=== PATIENT | female | born 1960 | race Caucasian/White ===

== ENCOUNTER → 2020-12-13 | Outpatient (CLI) | payer OTHER ==
[2020-12-13 16:08] LABS: BASOPHILS ABSOLUTE AUTO 0.05 K/mm3 (0.00-0.23); BASOPHILS PERCENT AUTO 1 % (0-2); EOSINOPHILS ABSOLUTE AUTO 0.25 K/mm3 (0.00-0.68); EOSINOPHILS PERCENT AUTO 4 % (0-6); Hemoglobin 10.9 g/dL (11.5-16.0); IMMATURE GRAN ABSOLUTE AUTO 0.02 K/mm3 (0.00-0.10); IMMATURE GRAN PERCENT AUTO 0 % (0-1); LYMPHOCYTES ABSOLUTE AUTO 0.99 K/mm3 (0.84-5.20); LYMPHOCYTES PERCENT AUTO 17 % (21-46); MONOCYTES ABSOLUTE AUTO 0.47 K/mm3 (0.16-1.47); MONOCYTES PERCENT AUTO 8 % (4-13); Mean Corpuscular HGB 29.9 pg (26.0-34.0); Mean Corpuscular Volume 90 fL (80-100); Mean Platelet Volume 11.3 fL (9.1-12.4); NEUTROPHILS ABSOLUTE AUTO 4.09 K/mm3 (1.96-9.15); NEUTROPHILS PERCENT AUTO 70 % (41-73); Platelet Count 249 K/mm3 (150-400); RDW Coefficient Variation 12.2 % (11.7-14.2); RDW Standard Deviation 40.5 fL (35.1-46.3); Red Blood Cell Count 3.65 M/mm3 (3.80-5.20); White Blood Cell Count 5.87 K/mm3 (4.00-11.30)
[2020-12-13 17:00] LABS: Alanine Aminotransfer (ALT/SGP 16 U/L (12-78); Albumin, Blood 3.8 g/dL (3.4-5.0); Albumin/Globulin Ratio 0.9 (0.8-1.8); Alk Phos 97 U/L (50-136); Anion Gap 5 mmol/L (6-16); Aspartate Aminotrans (AST/SGOT 12 U/L (12-37); Bilirubin, Total 0.2 mg/dL (0.1-1.0); Blood Urea Nitrogen 24 mg/dL (8-24); Bun/Creatinine Ratio 35.3 (12.0-20.0); CO2, Blood 27 mmol/L (21-32); Calcium, Blood 9.5 mg/dL (8.5-10.1); Chloride, Blood 109 mmol/L (98-108); Creatinine, Blood 0.68 mg/dL (0.40-1.00); Globulin, Blood 4.3 g/dL (2.2-4.0); Glomerular Filtration Rate >60 (60-); Glucose, Blood 92 mg/dL (70-99); Potassium, Blood 4.2 mmol/L (3.5-5.5); Sodium, Blood 141 mmol/L (136-145); Total Protein, Blood 8.1 g/dL (6.4-8.2)
[2020-12-13 17:36] LABS: CHOL/HDL RATIO 3.5; Cholesterol 204 mg/dL (50-200); Free Thyroxine 1.21 ng/dL (0.70-1.60); HDL Cholesterol 59 mg/dL (>39); LDL/HDL RATIO 2.1; Low Density Lipoprotein Chol 123 mg/dL (0-110); Triglycerides 108 mg/dL (30-160); Very Low Density Lipoprot Chol 21 mg/dL (6-32)
[2020-12-13 17:41] LABS: Thyroid Stimulating Hormone 0.418 uIU/mL (0.360-4.800)
== END | disposition home or self-care (01) ==
LOC: LAB SHORT 14:48
PROVIDERS: Nurse Practitioner Family
DX: E03.9 Hypothyroidism, unspecified (principal); E78.5 Hyperlipidemia, unspecified; I10 Essential (primary) hypertension
CPT/HCPCS: 80053; 80061; 84439; 84443; 85025

== ENCOUNTER 2021-02-04 14:59 | Observation (INO) | payer OTHER ==
[~2021-02-04] VITALS: Ht 165.1 cm; Wt 65.0 kg
[2021-02-04] MEDS ORDERED: MIRT15 PO (15:17)
[2021-02-04] MEDS ORDERED: CELE100 PO (15:31)
[2021-02-04] MEDS ORDERED: Aspir 8181 MG PO (15:31)
[2021-02-04] MEDS ORDERED: EZET10 PO (15:32)
[2021-02-04] MEDS ORDERED: DONEPEZIL HCL10 MG PO (15:32)
[2021-02-04] MEDS ORDERED: ZYRTEC10 M2 PO (15:32)
[2021-02-04] MEDS ORDERED: HORIZANT600 MG PO (15:33)
[2021-02-04] MEDS ORDERED: EUTHYROX125 MCG PO (15:34)
[2021-02-04] MEDS ORDERED: LOSA25 PO (15:34)
[2021-02-04] MEDS ORDERED: MEMA10 PO (15:35)
[2021-02-04] MEDS ORDERED: Methocarbamol500 MG PO (15:35)
[2021-02-04] MEDS ORDERED: OLAN10 PO (15:36)
[2021-02-04] MEDS ORDERED: OMEGA-3 1,0501 EACH PO (15:37)
[2021-02-04] MEDS ORDERED: OMEP20ER PO (15:38)
[2021-02-04] MEDS ORDERED: OXYB5 PO (15:38)
[2021-02-04] MEDS ORDERED: PANT40 PO (15:39)
[2021-02-04] MEDS ORDERED: Primidone50 MG PO (15:39)
[2021-02-04] MEDS ORDERED: SERT100 PO (15:40)
[2021-02-04 16:36] LABS: BASOPHILS ABSOLUTE AUTO 0.03 K/mm3 (0.00-0.23); BASOPHILS PERCENT AUTO 0 % (0-2); EOSINOPHILS ABSOLUTE AUTO 0.01 K/mm3 (0.00-0.68); EOSINOPHILS PERCENT AUTO 0 % (0-6); Hematocrit 39.1 % (33.0-51.0); Hemoglobin 13.2 g/dL (11.5-16.0); IMMATURE GRAN ABSOLUTE AUTO 0.07 K/mm3 (0.00-0.10); IMMATURE GRAN PERCENT AUTO 0 % (0-1); LYMPHOCYTES ABSOLUTE AUTO 2.08 K/mm3 (0.84-5.20); LYMPHOCYTES PERCENT AUTO 12 % (21-46); MONOCYTES ABSOLUTE AUTO 1.29 K/mm3 (0.16-1.47); MONOCYTES PERCENT AUTO 8 % (4-13); Mean Corpuscular HGB Conc 33.8 g/dL (31.5-36.5); Mean Corpuscular Volume 86 fL (80-100); Mean Platelet Volume 11.5 fL (9.1-12.4); NEUTROPHILS ABSOLUTE AUTO 13.53 K/mm3 (1.96-9.15); NEUTROPHILS PERCENT AUTO 80 % (41-73); Platelet Count 366 K/mm3 (150-400); RDW Coefficient Variation 12.9 % (11.7-14.2); Red Blood Cell Count 4.55 M/mm3 (3.80-5.20); White Blood Cell Count 17.01 K/mm3 (4.00-11.30)
[2021-02-04 17:02] LABS: Alanine Aminotransfer (ALT/SGP 20 U/L (12-78); Albumin, Blood 4.1 g/dL (3.4-5.0); Albumin/Globulin Ratio 0.8 (0.8-1.8); Alk Phos 106 U/L (50-136); Anion Gap 9 mmol/L (6-16); Aspartate Aminotrans (AST/SGOT 24 U/L (12-37); Bilirubin, Direct <0.1 mg/dL (0.0-0.3); Bilirubin, Total 0.3 mg/dL (0.1-1.0); Blood Urea Nitrogen 41 mg/dL (8-24); Bun/Creatinine Ratio 32.5 (12.0-20.0); CO2, Blood 23 mmol/L (21-32); Calcium, Blood 9.7 mg/dL (8.5-10.1); Chloride, Blood 105 mmol/L (98-108); Creatinine, Blood 1.26 mg/dL (0.40-1.00); Globulin, Blood 5.4 g/dL (2.2-4.0); Glomerular Filtration Rate 43 (60-); Glucose, Blood 126 mg/dL (70-99); Magnesium, Blood 2.2 mg/dL (1.6-2.4); Potassium, Blood 3.4 mmol/L (3.5-5.5); Sodium, Blood 137 mmol/L (136-145); Total Protein, Blood 9.5 g/dL (6.4-8.2)
[2021-02-04 17:06] LABS: Source, Urine Clean Catch
[2021-02-04 17:18] LABS: Influenza A, PCR NEGATIVE (NEGATIVE); Influenza B, PCR NEGATIVE (NEGATIVE); Resp Syncytial Virus, PCR NEGATIVE (NEGATIVE); SARS-Cov-2 (COVID-19) PCR, MMC NEGATIVE (NEGATIVE)
[2021-02-04 17:18] LABS: Bilirubin, Indirect Unable to Calculate mg/dL (0.1-0.7); Troponin I 0.917 ng/mL (0.000-0.040)
[2021-02-04 17:37] LABS: Appearance, Urine Clear (Clear); Bilirubin, Urine Neg (Neg); Blood, Urine 5+ (Neg); Color, Urine Yellow (P-Yellow); Glucose Qualitative, Urine 4+ (Neg); Ketones, Urine Neg (Neg); Leukocyte Esterase, Urine Neg (Neg); Nitrite, Urine Neg (Neg); Protein, Urine 4+ (Neg); Specific Gravity, Urine 1.015 (1.003-1.022); Urobilinogen, Urine NORM (Normal)
[2021-02-04 17:41] LABS: White Blood Cells, Urine 0-2 /hpf (0-5)
[2021-02-04 17:42] LABS: Amorphous Mod (0-Heavy); Bacteria Few /hpf; Granular Casts 0-2 /lpf (0); Hyaline Casts 0-2 /lpf (0-2); Squamous Epithelial Cells Few /hpf (Few)
[2021-02-04 19:19] LABS: Anti-Xa UFH, PHA Monitoring <0.10 IU/mL; International Normalized Ratio 1.13; Prothrombin Time Results 11.8 Sec (9.7-11.5)
[2021-02-05 03:50] LABS: BASOPHILS ABSOLUTE AUTO 0.05 K/mm3 (0.00-0.23); BASOPHILS PERCENT AUTO 0 % (0-2); EOSINOPHILS ABSOLUTE AUTO 0.01 K/mm3 (0.00-0.68); EOSINOPHILS PERCENT AUTO 0 % (0-6); Hematocrit 33.2 % (33.0-51.0); Hemoglobin 11.3 g/dL (11.5-16.0); IMMATURE GRAN ABSOLUTE AUTO 0.06 K/mm3 (0.00-0.10); IMMATURE GRAN PERCENT AUTO 0 % (0-1); LYMPHOCYTES ABSOLUTE AUTO 2.65 K/mm3 (0.84-5.20); LYMPHOCYTES PERCENT AUTO 14 % (21-46); MONOCYTES ABSOLUTE AUTO 1.55 K/mm3 (0.16-1.47); MONOCYTES PERCENT AUTO 8 % (4-13); Mean Corpuscular HGB 29.4 pg (26.0-34.0); Mean Corpuscular Volume 87 fL (80-100); Mean Platelet Volume 11.7 fL (9.1-12.4); NEUTROPHILS ABSOLUTE AUTO 14.11 K/mm3 (1.96-9.15); NEUTROPHILS PERCENT AUTO 77 % (41-73); Platelet Count 294 K/mm3 (150-400); RDW Coefficient Variation 13.2 % (11.7-14.2); RDW Standard Deviation 41.1 fL (35.1-46.3); Red Blood Cell Count 3.84 M/mm3 (3.80-5.20); White Blood Cell Count 18.43 K/mm3 (4.00-11.30)
[2021-02-05 04:19] LABS: Alanine Aminotransfer (ALT/SGP 22 U/L (12-78); Albumin, Blood 3.4 g/dL (3.4-5.0); Albumin/Globulin Ratio 0.8 (0.8-1.8); Alk Phos 87 U/L (50-136); Anion Gap 7 mmol/L (6-16); Aspartate Aminotrans (AST/SGOT 27 U/L (12-37); Bilirubin, Total 0.3 mg/dL (0.1-1.0); Blood Urea Nitrogen 31 mg/dL (8-24); Bun/Creatinine Ratio 36.3 (12.0-20.0); CO2, Blood 24 mmol/L (21-32); Calcium, Blood 8.8 mg/dL (8.5-10.1); Chloride, Blood 109 mmol/L (98-108); Creatinine, Blood 0.86 mg/dL (0.40-1.00); Globulin, Blood 4.4 g/dL (2.2-4.0); Glomerular Filtration Rate >60 (60-); Glucose, Blood 114 mg/dL (70-99); Potassium, Blood 3.2 mmol/L (3.5-5.5); Sodium, Blood 140 mmol/L (136-145); Thyroid Stimulating Hormone 0.882 uIU/mL (0.360-4.800); Total Protein, Blood 7.8 g/dL (6.4-8.2); Troponin I 0.489 ng/mL (0.000-0.040)
--- NOTE | 2021-02-05 05:11 | NUR ---
SUMMARY: PT IS A/OX4. PT HAS BEEN NAUSEATED MOST OF NOC SHIFT. SCHEDULED ZOFRAN AND PRN COMP HAVE BEEN HELPFUL. THE PT HAS IV MORPHINE PRN FOR ABD PAIN SHE CURRENTLY HAS HEPARIN GTT AT 15U/KG/HR OR 19.5 ML. SHE ALSO HAS LR @ 150 ML/HR. PT USES CALL LIGHT WELL.
--- NOTE | 2021-02-05 05:14 | NUR ---
ADMISSION: PT ARRIVED TO FLOOR VIA GURNEY AND TRANSFERRED HERSELF TO BED. ON CONTACT FOR A GI PANEL SHE HAS NO C/O OF CP, SOB, COUGH, JUST CONTINUES TO BE NAUSEATED. SHE REFUSED SCDs. SHE IS COVID -. TROPONINS ARE TRENDING DOWN. THE PT HAS TWO IVs ONE W/ HEPARIN GTT AND THE OTHER W/ LR @ 150. MOST OF HER EMESIS EPISODES ARE UNPRODUCTIVE, EXECEPT FOR ONE AMOUNT OF 25ML OF BILIOUS LIQUID. SHE IS NOT PASSING HUMBERTO OR HAD A BM IN THE LAST FEW DAYS.
--- NOTE | 2021-02-05 18:28 | NUR ---
SHIFT SUMMARY; PATIENT HAD NO BOWEL MOVEMENT TODAY. PER PROTOCOL CDIFF PRECAUTIONS ARE STOPPED AT 1915 AT SHIFT CHANGE. PATIENT IS AO X 4 TODAY. SHE IS CONCERNED THAT SHE HAS NOT HAD HER PSYCH MEDICATIONS AND NOT SLEPT FOR 3 DAYS. THIS RN LETS HER KNOW THAT HAS PUT THEM IN FOR TONIGHT. VIELKA HAD EPISODE OF HTN B/P WAS 175 SYSTOLIC, HYDRALAZINE WAS ADMIN IV AND SYSTOLIC DOWN TO 130'S. HR IS 125 AT TIMES CLIMBS TO 150 FOR A FEW MINUTES THEM RETURNS. SHE HAS ONE EPISODE OF VOMITTING AT DINNER TONIGHT WHERE SHE IS HEARD WRETCHING AND APPROX 4MLS OF LIQUID NOTED IN EMESIS BAG. ZOFRAN ODT PO WAS ADMIN AND AT THIS TIME PATIENT EXPRESSES SHE IS FEELING BETTER. PATIENT ABLE TO AMBULATE TO BATHROOM WITHOUT ASSIST AND DOES NOT CALL TO LET STAFF KNOW WHEN SHE VOIDS. WILL REMAIN AVAILABLE FOR THIS PATIENT FOR ANY WANTS OR NEEDS TILL HAND OFF AT SHIFT CHANGE. YUNG YUAN RN
[2021-02-06 06:00] LABS: Anion Gap 13 mmol/L (6-16); Blood Urea Nitrogen 13 mg/dL (8-24); Bun/Creatinine Ratio 21.8 (12.0-20.0); CO2, Blood 23 mmol/L (21-32); Chloride, Blood 101 mmol/L (98-108); Glomerular Filtration Rate >60 (60-); Glucose, Blood 107 mg/dL (70-99); Potassium, Blood 3.3 mmol/L (3.5-5.5); Sodium, Blood 137 mmol/L (136-145)
--- NOTE | 2021-02-06 06:40 | NUR ---
SHIFT SUMMARY AOX4. VSS. TELE ST HR 111-118 WHILE @REST. WHEN PT UP TO RESTROOM HR GOES UP TO 150'S FOR A FEW MIN THEN SLOWLY TRENDS BACK DOWN. REPORTS MID UPPER ABD DISCOMFORT, STATES POSSIBLY FROM HERNIA, DENIES NEED FOR TYLENOL. HYPERACTIVE BT. REPORTS NAUSEA & BURNING SENSATION. HAD 2 EPISODES RETCHING c YELLOW/LIGHT GREEN LIQUID EMESIS. I NOTICED RETCHING OCCURS AFTER PT HAS SWALLOWED SOMETHING. MEDICATED 1X c COMPAZINE & THIS AM MEDICATED c GI COCKTAIL FOR BURNING PAINFUL SENSATION. PLAN IS TO HAVE ECHO THIS AM. DENIES ANY CP. CALL LIGHT IN REACH. WCTM.
[2021-02-06 12:43] LABS: BASOPHILS ABSOLUTE AUTO 0.08 K/mm3 (0.00-0.23); BASOPHILS PERCENT AUTO 1 % (0-2); EOSINOPHILS ABSOLUTE AUTO 0.04 K/mm3 (0.00-0.68); EOSINOPHILS PERCENT AUTO 0 % (0-6); Hematocrit 36.6 % (33.0-51.0); IMMATURE GRAN PERCENT AUTO 1 % (0-1); LYMPHOCYTES PERCENT AUTO 18 % (21-46); MONOCYTES ABSOLUTE AUTO 1.03 K/mm3 (0.16-1.47); MONOCYTES PERCENT AUTO 9 % (4-13); Mean Corpuscular HGB 28.6 pg (26.0-34.0); Mean Corpuscular HGB Conc 32.8 g/dL (31.5-36.5); Mean Corpuscular Volume 87 fL (80-100); Mean Platelet Volume 11.4 fL (9.1-12.4); NEUTROPHILS ABSOLUTE AUTO 8.39 K/mm3 (1.96-9.15); NEUTROPHILS PERCENT AUTO 71 % (41-73); Platelet Count 302 K/mm3 (150-400); RDW Coefficient Variation 13.3 % (11.7-14.2); RDW Standard Deviation 42.4 fL (35.1-46.3); White Blood Cell Count 11.74 K/mm3 (4.00-11.30)
[2021-02-06] MEDS ORDERED: ONDA4ODT MM (12:52)
[2021-02-06] MEDS ORDERED: MIRALAX17 GM PO (12:53)
--- NOTE | 2021-02-06 15:14 | NUR ---
DISCHARGE PATIENT TRANSPORTED VIA WHEELCHAIR TO PRIVATE VEHICLE. DISCHARGE INSTRUCTIONS EXPLAINED TO PATIENT. PATIENT STATED UNDERSTANDING. PACKET SENT WITH PATIENT. IV X2 REMOVED WITHOUT DIFFICULTY. TELE REMOVED WITHOUT DIFFICULTY. BELONGINGS SENT WITH PATIENT. MEDICATIONS FAXED TO PERFERRED PHARMACY. PATIENT TO SCHEDULE FOLLOW UP WITH PCP.
== END 2021-02-06 14:17 | disposition home or self-care (01) ==
LOC: ER 14:59 → MEDS 15:00
PROVIDERS: Family Medicine; Student in an Organized Health Care Education/Training Program; ADMIT Internal Medicine
DX: R10.13 Epigastric pain (principal); R77.8 Other specified abnormalities of plasma proteins; R11.2 Nausea with vomiting, unspecified; I16.0 Hypertensive urgency; I10 Essential (primary) hypertension; N17.9 Acute kidney failure, unspecified; E87.6 Hypokalemia; E86.0 Dehydration; K21.9 Gastro-esophageal reflux disease without esophagitis; F17.290 Nicotine dependence, other tobacco product, uncomplicated; F12.90 Cannabis use, unspecified, uncomplicated; R19.7 Diarrhea, unspecified; F03.90 Unspecified dementia, unspecified severity, without behavioral disturbance, psychotic disturbance, mood disturbance, and anxiety; E03.9 Hypothyroidism, unspecified; M19.90 Unspecified osteoarthritis, unspecified site; F31.9 Bipolar disorder, unspecified; E78.5 Hyperlipidemia, unspecified; I77.819 Aortic ectasia, unspecified site; Z88.8 Allergy status to other drugs, medicaments and biological substances; Z79.82 Long term (current) use of aspirin; Z20.822 Contact with and (suspected) exposure to COVID-19
CPT/HCPCS: 0241U; 36415; 71045; 80048; 80053; 80076; 81001; 83690; 83735; 84443; 84484; 85025; 85520; 85610; 93005; 93010; 93306; 96365; 96375; 99285-25; A9270; C9113; J0360; J0780; J1644; J2270; J2405; J2765; J3475; J3480; J7042; J7050; J7120

== ENCOUNTER 2021-02-21 21:31 | Emergency (ER) | payer OTHER ==
[~2021-02-21] VITALS: Ht 165.1 cm; Wt 61.2 kg
[~2021-02-21 21:31] MED LIST: Aspir 8181 MG PO; CELE100 PO; DONEPEZIL HCL10 MG PO; EUTHYROX125 MCG PO; EZET10 PO; HORIZANT600 MG PO; LOSA25 PO; MEMA10 PO; MIRALAX17 GM PO; MIRT15 PO; Methocarbamol500 MG PO; OLAN10 PO; OMEGA-3 1,0501 EACH PO; OMEP20ER PO; ONDA4ODT MM; OXYB5 PO; PANT40 PO; Primidone50 MG PO; SERT100 PO; ZYRTEC10 M2 PO
[2021-02-21 22:20] LABS: BASOPHILS ABSOLUTE AUTO 0.08 K/mm3 (0.00-0.23); BASOPHILS PERCENT AUTO 1 % (0-2); EOSINOPHILS ABSOLUTE AUTO 0.11 K/mm3 (0.00-0.68); EOSINOPHILS PERCENT AUTO 1 % (0-6); Hematocrit 32.4 % (33.0-51.0); Hemoglobin 10.9 g/dL (11.5-16.0); IMMATURE GRAN ABSOLUTE AUTO 0.14 K/mm3 (0.00-0.10); IMMATURE GRAN PERCENT AUTO 1 % (0-1); LYMPHOCYTES ABSOLUTE AUTO 1.44 K/mm3 (0.84-5.20); LYMPHOCYTES PERCENT AUTO 11 % (21-46); MONOCYTES ABSOLUTE AUTO 0.79 K/mm3 (0.16-1.47); MONOCYTES PERCENT AUTO 6 % (4-13); Mean Corpuscular HGB 28.5 pg (26.0-34.0); Mean Corpuscular HGB Conc 33.6 g/dL (31.5-36.5); Mean Corpuscular Volume 85 fL (80-100); Mean Platelet Volume 9.3 fL (9.1-12.4); NEUTROPHILS ABSOLUTE AUTO 10.19 K/mm3 (1.96-9.15); NEUTROPHILS PERCENT AUTO 80 % (41-73); Platelet Count 473 K/mm3 (150-400); RDW Coefficient Variation 12.9 % (11.7-14.2); RDW Standard Deviation 39.5 fL (35.1-46.3); Red Blood Cell Count 3.83 M/mm3 (3.80-5.20); White Blood Cell Count 12.75 K/mm3 (4.00-11.30)
[2021-02-21 22:34] LABS: Source, Urine Clean Catch
[2021-02-21 22:38] LABS: Appearance, Urine Clear (Clear); Bilirubin, Urine Neg (Neg); Blood, Urine 5+ (Neg); Color, Urine Yellow (P-Yellow); Glucose Qualitative, Urine Neg (Neg); Ketones, Urine 1+ (Neg); Leukocyte Esterase, Urine 1+ (Neg); Nitrite, Urine Neg (Neg); Protein, Urine 3+ (Neg); Urobilinogen, Urine 1+ (Normal)
[2021-02-21 22:45] LABS: Troponin I <0.015 ng/mL (0.000-0.040)
[2021-02-21 22:45] LABS: Amorphous Light (0-Heavy); Bacteria Mod /hpf; Mucus Light (0-Heavy); Red Blood Cells, Urine 25-50 /hpf (0-2); Squamous Epithelial Cells Few /hpf (Few)
[2021-02-21 22:49] LABS: Alanine Aminotransfer (ALT/SGP 41 U/L (12-78); Albumin, Blood 2.8 g/dL (3.4-5.0); Albumin/Globulin Ratio 0.5 (0.8-1.8); Alk Phos 152 U/L (50-136); Anion Gap 11 mmol/L (6-16); Aspartate Aminotrans (AST/SGOT 14 U/L (12-37); Bilirubin, Total 0.3 mg/dL (0.1-1.0); Blood Urea Nitrogen 19 mg/dL (8-24); Bun/Creatinine Ratio 30.2 (12.0-20.0); CO2, Blood 27 mmol/L (21-32); Calcium, Blood 9.2 mg/dL (8.5-10.1); Chloride, Blood 98 mmol/L (98-108); Creatinine, Blood 0.63 mg/dL (0.40-1.00); Globulin, Blood 5.2 g/dL (2.2-4.0); Glomerular Filtration Rate >60 (60-); Glucose, Blood 139 mg/dL (70-99); Potassium, Blood 3.4 mmol/L (3.5-5.5); Sodium, Blood 136 mmol/L (136-145)
[2021-02-22] MEDS ORDERED: ONDA4ODT MM (01:41)
[2021-02-22] MEDS ORDERED: METO10 PO (01:41)
== END 2021-02-22 03:37 | disposition home or self-care (01) ==
LOC: ER 21:31
PROVIDERS: Student in an Organized Health Care Education/Training Program
DX: R11.2 Nausea with vomiting, unspecified (principal); R10.13 Epigastric pain; I10 Essential (primary) hypertension; K21.9 Gastro-esophageal reflux disease without esophagitis; Z79.899 Other long term (current) drug therapy
CPT/HCPCS: 36415; 74177; 80053; 81001; 81025; 83605; 83690; 84484; 85025; 87086; 93005; 93010; 96374; 96375; 99285-25; A9270; C9113; J1885; J2405; J2765; J7030; Q9967

== ENCOUNTER 2021-05-09 11:58 | Day surgery (SDC) | payer OTHER ==
[~2021-05-09] VITALS: Ht 165.1 cm; Wt 74.5 kg
[~2021-05-09 11:58] MED LIST changes: +METO10 PO; +PHENERGAN25 MG PR
--- NOTE | 2021-05-09 12:25 | NUR ---
05/09/21 Jose4 Tamra Huff 1 TRY RIGHT WRIST NO FLASH
== END 2021-05-09 13:19 | disposition home or self-care (01) ==
LOC: ORSCSDS 11:58
PROVIDERS: Student in an Organized Health Care Education/Training Program
PROC: 0DB78ZX Excision of Stomach, Pylorus, Via Natural or Artificial Opening Endoscopic, Diagnostic (ICD-10-PCS; principal; 2021-05-09 13:15)
PROC: 0DB98ZX Excision of Duodenum, Via Natural or Artificial Opening Endoscopic, Diagnostic (ICD-10-PCS; principal; 2021-05-09 13:15)
PROC: 0DB48ZX Excision of Esophagogastric Junction, Via Natural or Artificial Opening Endoscopic, Diagnostic (ICD-10-PCS; principal; 2021-05-09 13:15)
DX: R10.13 Epigastric pain (principal); R11.2 Nausea with vomiting, unspecified; K29.80 Duodenitis without bleeding; K29.70 Gastritis, unspecified, without bleeding; K22.70 Barrett's esophagus without dysplasia; K21.9 Gastro-esophageal reflux disease without esophagitis; K31.7 Polyp of stomach and duodenum; I10 Essential (primary) hypertension; Z87.891 Personal history of nicotine dependence; E03.9 Hypothyroidism, unspecified; F31.9 Bipolar disorder, unspecified; Z79.899 Other long term (current) drug therapy; Z79.82 Long term (current) use of aspirin
CPT/HCPCS: 88305; 88342; A9270; J2250; J2704; J3010; J7120

== ENCOUNTER 2022-06-22 09:56 | Inpatient (IN) | payer OTHER ==
[2022-06-22] VITALS (7 sets, daily range): BP systolic 176–209; BP diastolic 90–117
[~2022-06-22] VITALS: Ht 165.1 cm; Wt 83.4 kg
[~2022-06-22 09:56] MED LIST changes: +GABAPENTIN600 MG PO; -HORIZANT600 MG PO; +PROM12.5S PR; +PROM25 PO
[2022-06-22 10:23] LABS: BASOPHILS ABSOLUTE AUTO 0.08 K/mm3 (0.00-0.23); BASOPHILS PERCENT AUTO 0 % (0-2); EOSINOPHILS PERCENT AUTO 0 % (0-6); Hemoglobin 14.6 g/dL (11.5-16.0); IMMATURE GRAN ABSOLUTE AUTO 0.15 K/mm3 (0.00-0.10); IMMATURE GRAN PERCENT AUTO 1 % (0-1); LYMPHOCYTES ABSOLUTE AUTO 1.95 K/mm3 (0.84-5.20); LYMPHOCYTES PERCENT AUTO 9 % (21-46); MONOCYTES ABSOLUTE AUTO 0.75 K/mm3 (0.16-1.47); MONOCYTES PERCENT AUTO 3 % (4-13); Mean Corpuscular Volume 82 fL (80-100); Mean Platelet Volume 10.7 fL (9.1-12.4); NEUTROPHILS ABSOLUTE AUTO 19.17 K/mm3 (1.96-9.15); NEUTROPHILS PERCENT AUTO 87 % (41-73); Platelet Count 416 K/mm3 (150-400); RDW Coefficient Variation 13.3 % (11.7-14.2); RDW Standard Deviation 39.8 fL (35.1-46.3); Red Blood Cell Count 5.22 M/mm3 (3.80-5.20)
[2022-06-22 10:42] LABS: Albumin, Blood 5.1 g/dL (3.4-5.0); Bilirubin, Total 0.4 mg/dL (0.1-1.0); Creatinine, Blood 1.76 mg/dL (0.40-1.00); Potassium, Blood 3.6 mmol/L (3.5-5.5); Total Protein, Blood 10.1 g/dL (6.4-8.2)
[2022-06-22 13:34] LABS: Source, Urine Clean Catch
[2022-06-22 13:41] LABS: Appearance, Urine Clear (Clear); Bilirubin, Urine Neg (Neg); Blood, Urine 5+ (Neg); Color, Urine Yellow (P-Yellow); Glucose Qualitative, Urine Neg (Neg); Ketones, Urine 1+ (Neg); Leukocyte Esterase, Urine Neg (Neg); Nitrite, Urine Neg (Neg); Protein, Urine 4+ (Neg); Urobilinogen, Urine NORM (Normal)
[2022-06-22 13:51] LABS: Bacteria Rare /hpf; Squamous Epithelial Cells Few /hpf (Few); White Blood Cells, Urine Not Seen /hpf (0-5)
[2022-06-22 13:52] LABS: Mucus Mod (0-Heavy)
[2022-06-22 15:32] LABS: Base Excess Venous -0.4 mmol/L; Bicarbonate Venous 24.7 mmol/L (24.0-30.0); PCO2 Venous 31.8 mmHg (38-42); pH Blood Venous 7.47 (7.34-7.37)
--- NOTE | 2022-06-22 17:56 | NUR ---
Pt arrived to 357 via gurney from ed, she is actively vomiting on arrival, a/ox3, but states she feels confused, can't states the date, only that she's been sick for days, cooperative with care, follows commands well, denies pain, just sore from vomiting, lungs are clear in upper fontana, course in bases, resp even and unlabored, no cough noted until asked her to take deep breaths for lung assessment, resp are shallow, on r/a, hrr, tele in place running st with bounding heart, in low 100's, no edema noted, ppp+2, cap refill <3sec, vs high b/p, states she hasn't taken her meds for days, iv x2 to rwrist and rac, sites are clear and patent, btx4, abd flat soft tender to right flank, reports loose stools, voids without diff, skin c/w/d, ilia pizano, oriented to room layout and call system, call light in reach.
--- NOTE | 2022-06-22 18:50 | NUR ---
pt blood pressure high on second reading, notified Dr. Mayberry, recieved order to stop fluids and give 10mg hydralazine, this was done, pt not activly vomiting at this time, able to rest. call light in reach.
--- NOTE | 2022-06-23 01:00 | NUR ---
PATIENT STATES NO STOOL IN 2 DAYS. BATHROOM SET UP FOR STOOL SAMPLE FOR GI PANEL.
[2022-06-23 05:32] VITALS: BP 197/112
[2022-06-23 05:33] LABS: BASOPHILS ABSOLUTE AUTO 0.06 K/mm3 (0.00-0.23); BASOPHILS PERCENT AUTO 0 % (0-2); EOSINOPHILS PERCENT AUTO 0 % (0-6); Hematocrit 39.1 % (33.0-51.0); IMMATURE GRAN ABSOLUTE AUTO 0.22 K/mm3 (0.00-0.10); IMMATURE GRAN PERCENT AUTO 1 % (0-1); LYMPHOCYTES ABSOLUTE AUTO 1.97 K/mm3 (0.84-5.20); LYMPHOCYTES PERCENT AUTO 10 % (21-46); MONOCYTES ABSOLUTE AUTO 1.57 K/mm3 (0.16-1.47); MONOCYTES PERCENT AUTO 8 % (4-13); Mean Corpuscular HGB 27.9 pg (26.0-34.0); Mean Corpuscular HGB Conc 33.2 g/dL (31.5-36.5); Mean Corpuscular Volume 84 fL (80-100); Mean Platelet Volume 10.5 fL (9.1-12.4); NEUTROPHILS PERCENT AUTO 81 % (41-73); Platelet Count 314 K/mm3 (150-400); RDW Coefficient Variation 13.8 % (11.7-14.2); RDW Standard Deviation 42.1 fL (35.1-46.3); Red Blood Cell Count 4.66 M/mm3 (3.80-5.20); White Blood Cell Count 20.32 K/mm3 (4.00-11.30)
[2022-06-23 06:07] LABS: Bun/Creatinine Ratio 26.3 (12.0-20.0); Creatinine, Blood 0.8 mg/dL (0.40-1.00); Potassium, Blood 3.3 mmol/L (3.5-5.5)
[2022-06-23 06:16] VITALS: BP 180/96
[2022-06-23 07:32] VITALS: BP 153/91
[2022-06-23 11:29] VITALS: BP 169/96
--- NOTE | 2022-06-23 14:09 | NUR ---
"Spiritual Care Attempted | Pt. Request Pt. informed bedside nurse that she was somnolent and wanted to rest. Will remain available to Pt."
[2022-06-23 16:29] VITALS: BP 163/94
--- NOTE | 2022-06-23 18:35 | NUR ---
END OF SHIFT NOTE. PT A&OX4, ANSWERS QUESTIONS APPROPRIATELY. B/P ELEVATED, PRN HYDRALAZINE GIVEN, PRN EFFECTIVE FOR 3 HOURS. PT COMPLAINS OF THROAT IRRITATION/PAIN WHEN INTERMITTENTLLY BUT ESPECIALLY WITH SWALLOWING FROM VOMITING, BENZOCAINE THROAT SPRAY ADMINISTERED AND EFFECTIVE. PT HAS FREQUENT EPISODES OF VOMITING ANYTIME SHE EATS ICE CHIPS OR DRINKS ENSURE AND/OR GATORADE, DR NOTIFIED. PRN ZOFRAN, ATIVAN, AND REGLAN GIVEN THROUGHOUT THE DAY. PT STATES "I AM JUST SO OUT OF IT, IT'S HARD FOR ME TO REMEMBER EVERYTHING". WILL CONTINUE PLAN OF CARE.
[2022-06-23 19:59] VITALS: BP 152/83
[2022-06-24] VITALS (10 sets, daily range): BP systolic 132–195; BP diastolic 76–113
--- NOTE | 2022-06-24 04:22 | NUR ---
SHIFT SUMMERY. PT RESTING IN BED AT THIS TIME. PT SLEEPING INTERMITANLY AND HAVING NAUSEA AND VOMITING. PT REFUSED ALL PO MEDS. BUT WAS GIVEN IV ATIVAN AND ZOFAN. PT STILL STATED SHE WAS VERY NAUSEATED. TELE CALLED PTS HR IN THE 150S, CHECKED ON PT AND SHE HAD VOMITED. HR WENT BACK DOWN TO 113, HR HAS BEEN IN LOW 100S. PT DURING NIGHT WANTED TO GET UP AND BRUSH HER TEETH. PT SAID SHE FELT A LITTLE BETTER AFTER THAT.
[2022-06-24 05:19] LABS: BASOPHILS PERCENT AUTO 1 % (0-2); EOSINOPHILS ABSOLUTE AUTO 0.02 K/mm3 (0.00-0.68); EOSINOPHILS PERCENT AUTO 0 % (0-6); Hematocrit 41.7 % (33.0-51.0); Hemoglobin 13.7 g/dL (11.5-16.0); IMMATURE GRAN ABSOLUTE AUTO 0.17 K/mm3 (0.00-0.10); IMMATURE GRAN PERCENT AUTO 1 % (0-1); LYMPHOCYTES ABSOLUTE AUTO 2.68 K/mm3 (0.84-5.20); LYMPHOCYTES PERCENT AUTO 13 % (21-46); MONOCYTES ABSOLUTE AUTO 1.51 K/mm3 (0.16-1.47); MONOCYTES PERCENT AUTO 7 % (4-13); Mean Corpuscular HGB 27.9 pg (26.0-34.0); Mean Corpuscular HGB Conc 32.9 g/dL (31.5-36.5); Mean Corpuscular Volume 85 fL (80-100); Mean Platelet Volume 10.3 fL (9.1-12.4); NEUTROPHILS ABSOLUTE AUTO 16.21 K/mm3 (1.96-9.15); NEUTROPHILS PERCENT AUTO 78 % (41-73); Platelet Count 346 K/mm3 (150-400); RDW Coefficient Variation 13.8 % (11.7-14.2); RDW Standard Deviation 42.6 fL (35.1-46.3); Red Blood Cell Count 4.91 M/mm3 (3.80-5.20); White Blood Cell Count 20.69 K/mm3 (4.00-11.30)
[2022-06-24 06:01] LABS: Albumin, Blood 4.2 g/dL (3.4-5.0); Anion Gap 10 mmol/L (6-16); Blood Urea Nitrogen 20 mg/dL (8-24); CO2, Blood 23 mmol/L (21-32); Calcium, Blood 8.4 mg/dL (8.5-10.1); Chloride, Blood 104 mmol/L (98-108); Creatinine, Blood 0.74 mg/dL (0.40-1.00); Glomerular Filtration Rate 90 (60-); Glucose, Blood 133 mg/dL (70-99); Phosphorus, Blood 2.4 mg/dL (2.5-4.9); Potassium, Blood 2.9 mmol/L (3.5-5.5); Sodium, Blood 137 mmol/L (136-145)
--- NOTE | 2022-06-24 13:15 | NUR ---
STUDENT NURSE ASKED PT IF THEY WOULD ENJOY A LAVENDER ESSENTIAL PATCH FOR RELAXATION. UPON RETRIEIVING PATCH FROM [facility] CARE NURSE, THEY SUGGESTED TO PLACE PATCH IN CARD TO PREVENT SKIN IRRIATION AND OVERWHELMING SCENT. STUDENT ASKED IF PT ALLERGIC TO LAVENDER AND/OR INGREDIENTS IN PATCH, PT DENIED ANY ALLERGIES TO IT.
--- NOTE | 2022-06-24 13:27 | NUR ---
ASSUMED CARE OF PATIENT. PER DATABASE REPORTING CONSULTANT PT ST
--- NOTE | 2022-06-24 18:32 | NUR ---
PT A&OX4, ANSWERS QUESTIONS APPROPRIATELY. CONTINUES TO HAVE N/V, NOTIFIED AND PRN ANTI-NAUSEA MEDS ADMINISTERED AND LACTATED RINGERS GIVEN. PT DID NOT EAT ANY SOLID FOOD TODAY AND DID NOT TAKE ANY PILLS. B/P AND HR CONTINUES TO BE ELEVATED, PRN CARDIAC MEDS GIVEN. PT REPORTS BEING EXHAUSTED AND STATES "WHEN AM I GOING TO FEEL BETTER?". STUDENT NURSE INFORMED THE PT THAT HER HOSPITALIST DOCTOR ORDERED A CONSULT WITH THE GI DOCTOR. WILL CONTINUE PLAN OF CARE.
[2022-06-25] VITALS (17 sets, daily range): BP systolic 88–175; BP diastolic 58–125
--- NOTE | 2022-06-25 06:17 | NUR ---
PATIENT IS ALERT AND ORIENTED X4, COOPERATIVE WITH CARE. VERY PAINFUL, AND N/V CONTINUED, BOTH TREATED PER MAR. IND TO BSC. HTN, TREATED PER MAR WITH GOOD RESULTS. WILL CONT TO MONITOR.
[2022-06-25 06:18] LABS: BASOPHILS ABSOLUTE AUTO 0.11 K/mm3 (0.00-0.23); BASOPHILS PERCENT AUTO 1 % (0-2); EOSINOPHILS ABSOLUTE AUTO 0.12 K/mm3 (0.00-0.68); EOSINOPHILS PERCENT AUTO 1 % (0-6); Hematocrit 42.1 % (33.0-51.0); Hemoglobin 13.7 g/dL (11.5-16.0); IMMATURE GRAN PERCENT AUTO 1 % (0-1); LYMPHOCYTES ABSOLUTE AUTO 3.88 K/mm3 (0.84-5.20); LYMPHOCYTES PERCENT AUTO 23 % (21-46); MONOCYTES ABSOLUTE AUTO 1.45 K/mm3 (0.16-1.47); MONOCYTES PERCENT AUTO 9 % (4-13); Mean Corpuscular HGB Conc 32.5 g/dL (31.5-36.5); Mean Corpuscular Volume 86 fL (80-100); Mean Platelet Volume 10.4 fL (9.1-12.4); NEUTROPHILS ABSOLUTE AUTO 11.47 K/mm3 (1.96-9.15); NEUTROPHILS PERCENT AUTO 67 % (41-73); Platelet Count 311 K/mm3 (150-400); RDW Coefficient Variation 13.8 % (11.7-14.2); RDW Standard Deviation 43.6 fL (35.1-46.3); Red Blood Cell Count 4.89 M/mm3 (3.80-5.20); White Blood Cell Count 17.13 K/mm3 (4.00-11.30)
[2022-06-25 06:39] LABS: Albumin, Blood 3.7 g/dL (3.4-5.0); Anion Gap 8 mmol/L (6-16); Blood Urea Nitrogen 18 mg/dL (8-24); Bun/Creatinine Ratio 26.3 (12.0-20.0); CO2, Blood 22 mmol/L (21-32); Calcium, Blood 8.5 mg/dL (8.5-10.1); Chloride, Blood 108 mmol/L (98-108); Creatinine, Blood 0.68 mg/dL (0.40-1.00); Glomerular Filtration Rate 97 (60-); Glucose, Blood 114 mg/dL (70-99); Phosphorus, Blood 2.5 mg/dL (2.5-4.9); Potassium, Blood 3.2 mmol/L (3.5-5.5); Sodium, Blood 138 mmol/L (136-145)
--- NOTE | 2022-06-25 12:10 | NUR ---
06/25/22 1210 Jorden Segura HISTORY, CHART, MEDICATIONS AND ALLERGIES REVIEWED BEFORE START OF PROCEDURE. PATIENT CONFIRMS NPO STATUS AND AGREES WITH SCHEDULED PROCEDURE. 3-LEAD EKG REVIEWED WITH PHYSICIAN PRIOR TO START OF PROCEDURE. MONITOR INTACT WITH CONTINUOUS PULSE OXIMETRY,CAPNOGRAPHY, 3-LEAD EKG, INTERMITTENT BP. SUPPLEMENTAL O2 TO BE TITRATED THROUGHOUT PROCEDURE TO MAINTAIN O2 SATURATION ABOVE 90%. PATIENT DETERMINED TO BE ASA APPROPRIATE FOR PROPOFOL SEDATION PRIOR TO START OF PROCEDURE BY DR. HORN.
--- NOTE | 2022-06-25 18:16 | NUR ---
SHIFT SUMMARY PT A&OX4 AND PLEASANT. PT WENT FOR ENDOSCOPE EARLY IN THE AFTERNOON. PT VERY SLEEPY T/O DAY. PT TOLERATED ONLY A FEW SIPS OF CLEAR LIQUID MEALS. PT STILL NAUSEAS AND VOMITTING. PT WAS ABLE TO TOLERATE PO MEDICATIONS IN AFTERNOON. PT ABLE TO MAKE NEEDS KNOWN. BED IN LOWEST POSITION AND CALL LIGHT IN REACH.
[2022-06-26 02:22] VITALS: BP 123/76
[2022-06-26 06:29] LABS: Bun/Creatinine Ratio 22.6 (12.0-20.0); Creatinine, Blood 0.66 mg/dL (0.40-1.00)
--- NOTE | 2022-06-26 06:29 | NUR ---
SHIFT SUMMARY: A&O X 3, ABLE TO MAKE NEEDS KNOWN. NO COMPLAINTS OF CHEST PAIN OR DISCOMFORT. NO SOB WITH EXERTION. TRANSFERS SELF FROM BED TO COMMODE. ON CLEAR LIQUID DIET WOULD LIKE TO PROGRESS TO FULL LIQUID DIET AND SOFT FOODS LIKE MASHED POTATOES. SHE HAS BEEN NAUSEATED THE PREVIOUS DAY AND FELT BETTER DURING THE NIGHT AND REQUESTED SOLID FOOD. SHE DID HOWEVER START FEELING NAUSEATED AGAIN AROUND 0400 HRS. SHE IS CURRENTLY ON A REGIMEN OF ZOFRAN IV Q 6 HRS PANTOPRAZOLE IV AND USED ATIVAN IV X 2 IN THE HS WHICH WAS EFFECTIVE. HER PERIPHERAL IV ON THE RIGHT ARM STARTED LEAKING AROUND 0415 AND WAS DC'D AT THAT TIME. A NEW PERIPHERAL IV WAS PLACED BY PRITESH QUINTANA TO LEFT ARM. SHE WAS STARTING TO FEEL NAUSEATED AGAIN AT THAT POINT. HER LACTACTED RINGERS RESTARTED AND HER 0600 NAUSEA MEDICATIONS GIVEN. CALL LIGHT WITHIN REACH.
[2022-06-26 08:13] VITALS: BP 141/83
--- NOTE | 2022-06-26 08:25 | NUR ---
pt laying in bed with eyes closed, wakes easily, a/ox4, states she is feeling some better than when she came in, cooperative with care, follows commands well, denies pain, assisted her to chair for breakfast and did am care, has a low grade temp, but had several blankets on and room is warm, lungs are clear t/o, dim in bases, no cough noted, on r/a, resp even and unlabored, hrr, bounding, tele in place running sr per monitor, see strip, no edema noted, ppp+2, cap refill <3sec, vs stable, iv to left fa, site is clear and patent, btx4, abd flat soft nontender, voids without diff, skin c/w/d, maew, transfered to chair indep, just needed assist with iv line, ilia, call light in reach.
--- NOTE | 2022-06-26 09:59 | NUR ---
Dr. Vance in to see pt, she will be going home today.
[2022-06-26] MEDS ORDERED: SUCR1 PO (10:46)
[2022-06-26] MEDS ORDERED: POTCHL20ER PO (11:07)
--- NOTE | 2022-06-26 12:06 | NUR ---
went over discharge instructions with pt, she verbalized understanding, iv removed intact, new meds faxed into her pharmacy, will leave when ride arrives.
--- NOTE | 2022-06-26 13:19 | NUR ---
pt left via wheelchair with station examiner in attendence.
--- NOTE | 2022-06-29 01:25 | NUR ---
Late note 06/23/22 Pt having nausea and vomiting. pt also has a hz pt given an ice pack and also medication for nausea. pt refused meds due to n/v. pt alert hr tacky, lungs CTA bilat. skin intact. bowel tones hyperatctive. pt at end of shft with no GUO but still having N/V.
== END 2022-06-26 13:19 | disposition home or self-care (01) | DRG 392 ==
LOC: ER 09:56 → MEDS 14:22 → ENPENDDIS 06-26 10:13 → MEDS 06-26 13:19
PROVIDERS: Internal Medicine; Student in an Organized Health Care Education/Training Program; ADMIT Family Medicine
PROC: 0DB68ZX Excision of Stomach, Via Natural or Artificial Opening Endoscopic, Diagnostic (ICD-10-PCS; 2022-06-25)
PROC: 0DB58ZX Excision of Esophagus, Via Natural or Artificial Opening Endoscopic, Diagnostic (ICD-10-PCS; principal; 2022-06-25 12:00)
DX: K52.9 Noninfective gastroenteritis and colitis, unspecified (principal); N17.9 Acute kidney failure, unspecified; E87.20 Acidosis, unspecified; K29.40 Chronic atrophic gastritis without bleeding; K22.70 Barrett's esophagus without dysplasia; E87.6 Hypokalemia; E86.0 Dehydration; I10 Essential (primary) hypertension; D75.839 Thrombocytosis, unspecified; I16.0 Hypertensive urgency; F31.9 Bipolar disorder, unspecified; F12.10 Cannabis abuse, uncomplicated; E83.39 Other disorders of phosphorus metabolism; K21.00 Gastro-esophageal reflux disease with esophagitis, without bleeding; F03.90 Unspecified dementia, unspecified severity, without behavioral disturbance, psychotic disturbance, mood disturbance, and anxiety; E03.9 Hypothyroidism, unspecified; R11.15 Cyclical vomiting syndrome unrelated to migraine; K44.9 Diaphragmatic hernia without obstruction or gangrene; Z88.8 Allergy status to other drugs, medicaments and biological substances; Z79.82 Long term (current) use of aspirin; Z79.890 Hormone replacement therapy; Z79.899 Other long term (current) drug therapy; Z90.49 Acquired absence of other specified parts of digestive tract; Z98.890 Other specified postprocedural states; Z87.891 Personal history of nicotine dependence; Z96.649 Presence of unspecified artificial hip joint
CPT/HCPCS: 36415; 71046; 74177; 80048; 80053; 80069; 81001; 82010; 82803; 82947; 83605; 83690; 83735; 84145; 84484; 85025; 85651; 86140; 87040; 93005; 93010; 96361; 96365-59; 96366; 96367; 96368; 96375; 96376; 99285-25; A9270; C9113; J0360; J0692; J0696; J2060; J2270; J2405; J2704; J2765; J3010; J3475; J3480; J7040; J7050; J7120; Q9967

== ENCOUNTER 2023-11-03 09:42 | Inpatient (IN) | payer MEDICARE, OTHER ==
[~2023-11-03] VITALS: Ht 165.1 cm; Wt 71.2 kg
[~2023-11-03 09:42] MED LIST changes: -EUTHYROX125 MCG PO; +EUTHYROX50 MCG PO; +POTCHL20ER PO; +SUCR1 PO
[2023-11-03] MEDS ORDERED: NS 1,000 ML IV SCH ×3 (10:05→21:20)
[2023-11-03] MEDS ORDERED: Ondansetron HCl 2 MG / ML 2ML Vial IV PRN ×2 (10:05→17:05)
[2023-11-03] MEDS ORDERED: Ketorolac Tromethamine 30mg Vial IV ONE (10:15)
[2023-11-03 10:23] LABS: BASOPHILS ABSOLUTE AUTO 0.07 K/mm3 (0.00-0.23); BASOPHILS PERCENT AUTO 0 % (0-2); EOSINOPHILS ABSOLUTE AUTO 0.01 K/mm3 (0.00-0.68); EOSINOPHILS PERCENT AUTO 0 % (0-6); Hemoglobin 14.7 g/dL (11.5-16.0); IMMATURE GRAN ABSOLUTE AUTO 0.11 K/mm3 (0.00-0.10); IMMATURE GRAN PERCENT AUTO 1 % (0-1); LYMPHOCYTES ABSOLUTE AUTO 1.91 K/mm3 (0.84-5.20); LYMPHOCYTES PERCENT AUTO 10 % (21-46); MONOCYTES ABSOLUTE AUTO 0.68 K/mm3 (0.16-1.47); MONOCYTES PERCENT AUTO 4 % (4-13); Mean Corpuscular HGB 30.8 pg (26.0-34.0); Mean Corpuscular HGB Conc 35.9 g/dL (31.5-36.5); Mean Corpuscular Volume 86 fL (80-100); Mean Platelet Volume 11.2 fL (9.1-12.4); NEUTROPHILS ABSOLUTE AUTO 15.86 K/mm3 (1.96-9.15); NEUTROPHILS PERCENT AUTO 85 % (41-73); Platelet Count 312 K/mm3 (150-400); RDW Coefficient Variation 13.1 % (11.7-14.2); RDW Standard Deviation 40.8 fL (35.1-46.3); Red Blood Cell Count 4.77 M/mm3 (3.80-5.20); White Blood Cell Count 18.64 K/mm3 (4.00-11.30)
[2023-11-03 10:40] LABS: Albumin, Blood 4.9 g/dL (3.4-5.0); Albumin/Globulin Ratio 1.1 (0.8-1.8); Bilirubin, Total 0.7 mg/dL (0.1-1.0); Bun/Creatinine Ratio 19.5 (12.0-20.0); Calcium, Blood 9.9 mg/dL (8.5-10.1); Creatinine, Blood 1.13 mg/dL (0.40-1.00); Globulin, Blood 4.5 g/dL (2.2-4.0); Potassium, Blood 3.9 mmol/L (3.5-5.5); Total Protein, Blood 9.4 g/dL (6.4-8.2)
[2023-11-03] MEDS ORDERED: Droperidol 5 mg/2 ml Vial IV ONE ×3 (10:55→14:55)
[2023-11-03 12:00] LABS: Source, Urine Clean Catch
[2023-11-03 12:05] LABS: Appearance, Urine Clear (Clear); Bilirubin, Urine Neg (Neg); Blood, Urine 4+ (Neg); Color, Urine Yellow (P-Yellow); Glucose Qualitative, Urine 1+ (Neg); Ketones, Urine 3+ (Neg); Leukocyte Esterase, Urine Neg (Neg); Nitrite, Urine Neg (Neg); Protein, Urine 3+ (Neg); Specific Gravity, Urine 1.015 (1.003-1.022); Urobilinogen, Urine NORM (Normal)
[2023-11-03] MEDS ORDERED: Losartan Potassium 25 MG Tab PO ONE (12:50)
[2023-11-03 12:55] LABS: Amorphous Light (0-Heavy); Bacteria Few /hpf; Hyaline Casts 0-2 /lpf (0-2); Squamous Epithelial Cells Few /hpf (Few); White Blood Cells, Urine 0-2 /hpf (0-5)
[2023-11-03] MEDS ORDERED: FentaNYL Citrate 50 MCG/ML 2 ML Injection IV ONE (14:55)
[2023-11-03] MEDS ORDERED: Labetalol HCL 5 MG/ML 4ML Injection (Single Dose) IV ONE (15:40)
[2023-11-03] MEDS ORDERED: FLU VACC TS2024-25(6MOS UP)/PF 45 MCG/0.5 ML SYRINGE IM ONE (17:05)
[2023-11-03] MEDS ORDERED: HydrALAZINE HCl 20 MG / ML 1ML Vial IV PRN (17:10)
[2023-11-03] MEDS ORDERED: FentaNYL Citrate 50 MCG/ML 2 ML Injection IV PRN (17:10)
[2023-11-03] MEDS ORDERED: Prochlorperazine Edisylate 10 mg Vial IV PRN (17:10)
[2023-11-03] MEDS ORDERED: Enoxaparin 40 MG/0.4 ML SYR SC SCH (18:00)
[2023-11-03 18:47] VITALS: BP 192/113
--- NOTE | 2023-11-03 19:04 | NUR ---
ADMISSION NOTE: PATIENT ARRIVES TO ROOM AT 1835 VIA WHEELCHAIR,FROM ER c DX'S OF REFRACTORY N/V FOR A WEEK. PATIENT TRANSFERRED TO BED c SBA. PATIENT ORIENTATED TO ROOM AND CALL SYSTEM. ADMISSION VITALS TAKEN. TELE IN PLACED AND VERIFIED BY COMPONENT INSPECTOR, SR HR IN THE 90'S BPM. QUICK ADMITT COMPLETED. PATIENT HYPERTENSIVE, FEBRILE 100.2 TEMP, DENIES CP/PRESSURE, SOB AND DIZZINESS. SENSATIONS INTACT, STRENGTH ARE EQUAL TO ALL EXTREMITIES. PATIENT A/O TO SELF AND PLACED, HAVING TROUBLE PROCESSING HER THOUGHTS TOGETHER AND ANSWERING TO QUESTIONS. PATIENT REPORTS PAIN TO ABDOMEN AND NAUSEOUS. BEDSIDE REPORTS GIVEN TO MARIANO TOLLIVER.
[2023-11-03 19:15] VITALS: BP 193/102
[2023-11-03 20:25] VITALS: BP 144/86
[2023-11-03 20:29] LABS: U Amphetamine Screen Not Detected; U Barbituate Screen DETECTED; U Benzodiazapine Screen Not Detected; U Buprenorphine Screen Not Detected; U Cannabinoids Screen DETECTED; U Cocaine Screen Not Detected; U Methadone Screen Not Detected; U Methamphetamine Screen Not Detected; U Opiates Screen Not Detected; U Oxycodone Screen Not Detected; U Phencyclidine Screen Not Detected
[2023-11-04] VITALS (7 sets, daily range): BP systolic 118–181; BP diastolic 65–91
[2023-11-04 05:37] LABS: BASOPHILS ABSOLUTE AUTO 0.07 K/mm3 (0.00-0.23); BASOPHILS PERCENT AUTO 0 % (0-2); EOSINOPHILS ABSOLUTE AUTO 0.04 K/mm3 (0.00-0.68); EOSINOPHILS PERCENT AUTO 0 % (0-6); Hematocrit 38.5 % (33.0-51.0); Hemoglobin 13.2 g/dL (11.5-16.0); IMMATURE GRAN ABSOLUTE AUTO 0.06 K/mm3 (0.00-0.10); IMMATURE GRAN PERCENT AUTO 0 % (0-1); LYMPHOCYTES ABSOLUTE AUTO 3.69 K/mm3 (0.84-5.20); LYMPHOCYTES PERCENT AUTO 24 % (21-46); MONOCYTES ABSOLUTE AUTO 1.55 K/mm3 (0.16-1.47); MONOCYTES PERCENT AUTO 10 % (4-13); Mean Corpuscular HGB 30.2 pg (26.0-34.0); Mean Corpuscular HGB Conc 34.3 g/dL (31.5-36.5); Mean Corpuscular Volume 88 fL (80-100); Mean Platelet Volume 10.7 fL (9.1-12.4); NEUTROPHILS ABSOLUTE AUTO 10.18 K/mm3 (1.96-9.15); NEUTROPHILS PERCENT AUTO 65 % (41-73); Platelet Count 258 K/mm3 (150-400); RDW Coefficient Variation 13.5 % (11.7-14.2); RDW Standard Deviation 43.8 fL (35.1-46.3); Red Blood Cell Count 4.37 M/mm3 (3.80-5.20); White Blood Cell Count 15.59 K/mm3 (4.00-11.30)
[2023-11-04] MEDS ORDERED: Levothyroxine Sodium 0.125 MG Tab PO SCH (06:00)
[2023-11-04] MEDS ORDERED: Omeprazole 20 MG CapCR PO SCH (06:00)
[2023-11-04 06:18] LABS: Albumin, Blood 4.2 g/dL (3.4-5.0); Albumin/Globulin Ratio 1.1 (0.8-1.8); Bilirubin, Total 0.6 mg/dL (0.1-1.0); Bun/Creatinine Ratio 21.1 (12.0-20.0); Calcium, Blood 8.5 mg/dL (8.5-10.1); Creatinine, Blood 0.71 mg/dL (0.40-1.00); Globulin, Blood 3.7 g/dL (2.2-4.0); Potassium, Blood 2.9 mmol/L (3.5-5.5); Total Protein, Blood 7.9 g/dL (6.4-8.2)
--- NOTE | 2023-11-04 07:47 | NUR ---
DESIGN CONSULTANT SUMMARY ON ARRIVAL TO UNIT AT SHIFT CHANGE, , DR. CANTU NOTIFIED OF SEVERAL THINGS: NOTIFIED OF PTS MILD CONFUSION WORSE THAN HER BASELINE, HER FEVER OF 100, HER NEED FOR BLOOD CULTURES, HER CONTINUED VOMITING DESPITE MEDS/NEED FOR IV FLUIDS. MD ORDERS IVF X 1.5L NS, BLOOD CULTURES, GI PCR. SAYS WE CAN HOLD OFF ON ANTIBIOTICS FOR NOW PT MAY HAVE VIRAL INFECTION. NO BOWEL MOVEMENT THIS SHIFT. PASSED ON NEED FOR STOOL SAMPLE TO ONCOMING NURSE. PT HAS VOMITED 5 TIMES THIS SHIFT. HER NAUSEA MEDS WORK FOR HER BUT SOON THEY START WEARING OFF SHE STARTS VOMITING AGAIN. PT HAS BEEN SLIGHTLY CONFUSED/CANNOT REMEMBER WHAT MONTH IT IS OR WHAT MEDS SHE TAKES AT HOME.
[2023-11-04] MEDS ORDERED: Lactated Ringer's 1,000 ML IV SCH (07:50)
[2023-11-04] MEDS ORDERED: Potassium Chl 20MEQ/Water100ML 100 ML IV SCH (08:00)
[2023-11-04] MEDS ORDERED: Pantoprazole Sodium 40 MG Injection IV SCH (08:00)
[2023-11-04] MEDS ORDERED: Sertraline HCl 100 MG Tab PO SCH (09:00)
[2023-11-04] MEDS ORDERED: NEXLIZET 180-11 EACH PO (12:24)
[2023-11-04] MEDS ORDERED: EZET10 PO (12:28)
[2023-11-04] MEDS ORDERED: CELE200 PO (12:28)
--- NOTE | 2023-11-04 18:18 | NUR ---
SHIFT SUMMARY: PATIENT A/OX3, CONFUSED TO DATES. PATIENT HAD OT EPISODE OF NAUSEA, MEDICATED X1 FOR NAUSEA AND X1 FOR GUO. PATIENT REPORTS NAUSEOUS HAS IMPROVED. PATIENT STILL NPO, TOLERATING SMALL AMT OF ICE CHIPS. PATIENT AM K LAB VALUES OF 2.9, RECEIVED 2 DOSES OF IV K CHLORIDE THIS SHIFT. PATIENT CONTINENT OF BLADDER, USES BSC INDEPENDENTLY, NO BM THIS SHIFT. PATIENT RESTING IN BED ON/OFF T/O SHIFT. PATIENT HAS PIV TO L HAND INFUSING LR AT 100 MLS/HR. VITAL SIGNS REVIEWED. CALL LIGHT IN REACH.
--- NOTE | 2023-11-04 18:41 | NUR ---
ADDITIONAL NOTE: PATIENT ON TELE, ST HR IN THE LOW 110'S BPM.
[2023-11-04] MEDS ORDERED: OLANZapine 10 MG Tab PO SCH (21:00)
[2023-11-04] MEDS ORDERED: Mirtazapine 15 MG Tab PO SCH (21:00)
[2023-11-04] MEDS ORDERED: Amitriptyline HCl 25 MG Tab PO SCH (21:00)
--- NOTE | 2023-11-05 00:01 | NUR ---
Call received from radiation technician reporting a sustained HR in the 130's. Patient is awake, does c/o "not feeling well". She is here for cyclic emisis. Vital signs taken, pulse is 114, this is her baseline today, BP 160/91, RR 14, sat 96%. Report to [facility] nurse Kayli. Will continue Tele monitoring.
[2023-11-05 03:18] VITALS: BP 187/96
[2023-11-05 03:50] VITALS: BP 158/98
[2023-11-05 05:05] LABS: BASOPHILS ABSOLUTE AUTO 0.06 K/mm3 (0.00-0.23); BASOPHILS PERCENT AUTO 1 % (0-2); EOSINOPHILS ABSOLUTE AUTO 0.02 K/mm3 (0.00-0.68); EOSINOPHILS PERCENT AUTO 0 % (0-6); Hematocrit 41.1 % (33.0-51.0); Hemoglobin 14.2 g/dL (11.5-16.0); IMMATURE GRAN ABSOLUTE AUTO 0.06 K/mm3 (0.00-0.10); IMMATURE GRAN PERCENT AUTO 1 % (0-1); LYMPHOCYTES ABSOLUTE AUTO 1.83 K/mm3 (0.84-5.20); LYMPHOCYTES PERCENT AUTO 15 % (21-46); MONOCYTES PERCENT AUTO 7 % (4-13); Mean Corpuscular HGB 30.7 pg (26.0-34.0); Mean Corpuscular HGB Conc 34.5 g/dL (31.5-36.5); Mean Corpuscular Volume 89 fL (80-100); Mean Platelet Volume 11.2 fL (9.1-12.4); NEUTROPHILS ABSOLUTE AUTO 9.57 K/mm3 (1.96-9.15); NEUTROPHILS PERCENT AUTO 78 % (41-73); Platelet Count 225 K/mm3 (150-400); RDW Coefficient Variation 13.2 % (11.7-14.2); RDW Standard Deviation 43.4 fL (35.1-46.3); Red Blood Cell Count 4.62 M/mm3 (3.80-5.20); White Blood Cell Count 12.34 K/mm3 (4.00-11.30)
[2023-11-05 05:44] LABS: Albumin, Blood 3.8 g/dL (3.4-5.0); Albumin/Globulin Ratio 0.9 (0.8-1.8); Bilirubin, Total 0.7 mg/dL (0.1-1.0); Bun/Creatinine Ratio 15.4 (12.0-20.0); Calcium, Blood 8.5 mg/dL (8.5-10.1); Creatinine, Blood 0.52 mg/dL (0.40-1.00); Globulin, Blood 4.2 g/dL (2.2-4.0); Potassium, Blood 2.6 mmol/L (3.5-5.5)
[2023-11-05] MEDS ORDERED: Levothyroxine Sodium 0.15 MG Tab PO SCH (06:00)
[2023-11-05 06:24] LABS: Magnesium, Blood 1.6 mg/dL (1.6-2.4)
[2023-11-05] MEDS ORDERED: Potassium Chl 20MEQ/Water100ML 100 ML IV SCH ×2 (06:25)
[2023-11-05] MEDS ORDERED: Potassium Chl 20MEQ/Water100ML 100 ML IV STA (06:42)
[2023-11-05 08:14] VITALS: BP 160/86
--- NOTE | 2023-11-05 08:29 | NUR ---
IRON WORKER SUMMARY PT CONTINUES TO EXPERIENCE VOMITING WHEN HER NAUSEA MEDS WEAR OFF. IVF RUNNING. WILL REPLACE K+ IV THIS AM
[2023-11-05 14:23] LABS: Bun/Creatinine Ratio 17.2 (12.0-20.0); Calcium, Blood 8.2 mg/dL (8.5-10.1); Creatinine, Blood 0.58 mg/dL (0.40-1.00); Potassium, Blood 3.9 mmol/L (3.5-5.5)
[2023-11-05 15:11] VITALS: BP 168/92
--- NOTE | 2023-11-05 17:07 | NUR ---
SHIFT SUMMARY PT IS A/OX3-4, AT TIMES SLOW TO RESPOND. PT MEDICATED X1 WITH PRN COMPAZINE THIS MORNING PER APR. THE PT WAS ABLE TO EAT ALL OF HER CLEAR LIQUID LUNCH WITHOUT EXPERIENCING N/V. THE PT WAS CHANGED TO A FULL LIQUID DIET. 400 ML OF POTASSIUM CHLORIDE GIVEN THROUGHOUT THE SHIFT. ON TELE RUNNING SINUS TACH IN THE 110-120'S. LR RUNNING AT 100 ML/HR.
[2023-11-05 19:23] VITALS: BP 185/89
[2023-11-05 20:10] VITALS: BP 148/90
[2023-11-06 04:00] VITALS: BP 176/99
[2023-11-06 04:47] VITALS: BP 154/88
[2023-11-06 05:42] LABS: BASOPHILS PERCENT AUTO 1 % (0-2); EOSINOPHILS ABSOLUTE AUTO 0.08 K/mm3 (0.00-0.68); EOSINOPHILS PERCENT AUTO 1 % (0-6); Hematocrit 43.2 % (33.0-51.0); Hemoglobin 15.2 g/dL (11.5-16.0); IMMATURE GRAN ABSOLUTE AUTO 0.06 K/mm3 (0.00-0.10); IMMATURE GRAN PERCENT AUTO 0 % (0-1); LYMPHOCYTES ABSOLUTE AUTO 2.49 K/mm3 (0.84-5.20); LYMPHOCYTES PERCENT AUTO 17 % (21-46); MONOCYTES ABSOLUTE AUTO 1.07 K/mm3 (0.16-1.47); MONOCYTES PERCENT AUTO 7 % (4-13); Mean Corpuscular HGB 30.6 pg (26.0-34.0); Mean Corpuscular HGB Conc 35.2 g/dL (31.5-36.5); Mean Corpuscular Volume 87 fL (80-100); Mean Platelet Volume 11.2 fL (9.1-12.4); NEUTROPHILS ABSOLUTE AUTO 10.84 K/mm3 (1.96-9.15); NEUTROPHILS PERCENT AUTO 74 % (41-73); Platelet Count 259 K/mm3 (150-400); RDW Coefficient Variation 13.2 % (11.7-14.2); RDW Standard Deviation 42.2 fL (35.1-46.3); Red Blood Cell Count 4.97 M/mm3 (3.80-5.20); White Blood Cell Count 14.64 K/mm3 (4.00-11.30)
[2023-11-06 07:05] LABS: Calcium, Blood 8.8 mg/dL (8.5-10.1); Creatinine, Blood 0.53 mg/dL (0.40-1.00); Potassium, Blood 3.1 mmol/L (3.5-5.5); Thyroid Stimulating Hormone 13.6 uIU/mL (0.360-4.800)
[2023-11-06 07:26] VITALS: BP 151/89
[2023-11-06] MEDS ORDERED: Magnesium Sulf 2 GM/Water 50ML 50 ML IV ONE (07:40)
--- NOTE | 2023-11-06 07:59 | NUR ---
CONCRETE BUILDING ASSEMBLER SUMMARY PT IS STILL EXPERIENCING ENOUGH N/V/ABD PAIN THAT SHE BARELY SLEEPS ON CONCRETE BUILDING ASSEMBLER. SHE WAS ABLE TO GET ABOUT AN HOUR ONLY. PT IS ABLE TO HAVE A FULL LIQUID DIET BUT SHE WAS TOO TERRIFIED TO TRY, DRINKING WATER STILL MAKES HER VOMIT AT TIMES. NEW IV PLACED.
[2023-11-06] MEDS ORDERED: Potassium Chloride 20 MEQ TabCR PO ONE (08:00)
[2023-11-06] MEDS ORDERED: Potassium Chl 20MEQ/Water100ML 100 ML IV SCH ×2 (08:55→15:00)
[2023-11-06] MEDS ORDERED: Sertraline HCl 100 MG Tab PO SCH (09:00)
[2023-11-06] MEDS ORDERED: Lactated Ringer's 1,000 ML IV SCH (12:30)
[2023-11-06 15:04] VITALS: BP 141/83
--- NOTE | 2023-11-06 18:25 | NUR ---
SHIFT SUMMARY PT IS A/OX3-4, SOME CONFUSION AND AT TIMES SLOW TO RESPOND. PT CHANGED TO A SOFT BITE DIET TODAY. NO EPISODES OF N/V THROUGHOUT THE SHIFT. POTASSIUM INFUSION RUNNING THROUGHOUT MUCH OF THE DAY. THIS EVENING THE IV WAS PULLED TRYING TO GET BACK TO BED FROM THE BSC. ON TELE RUNNING SINUS TACH IN THE 110-120'S. LR RUNNING AT 75 ML/HR. PT CALLS USING THE CALL LIGHT APPROPRIATELY.
[2023-11-06 19:56] VITALS: BP 90/69
[2023-11-06 20:02] VITALS: BP 93/75
[2023-11-06] MEDS ORDERED: LORazepam 2 MG/ML 1ML Injection IV PRN (20:45)
[2023-11-06] MEDS ORDERED: Potassium Chloride 20 MEQ/15 ML UDC PO ONE (21:30)
[2023-11-07 02:55] VITALS: BP 197/96
[2023-11-07 04:15] VITALS: BP 126/68
--- NOTE | 2023-11-07 05:04 | NUR ---
SHIFT SUMMARY PT IS A&OX4, PLEASANT AND COOPERATIVE WITH CARES. BP SOFT AT BEGINNING OF SHIFT, 93/75 MAP 82, OTHER VITALS WNL ON RA. AT 0255 HTN 197/96, PRN HYDRALAZINE ADMINISTERED, RECHECK BP WAS 126/68. PER TELEMETRY PT IS SR @ 98. C/O PAIN 8/10 IN ABD AND GUO, MANAGED WITH PRN 50 MCG IV FENTANYL. TOLERATING A SOFT AND BITE SIZE DIET, NAUSEA MEDICATIONS ADMINISTERED, NO VOMITTING. UP INDEPENDENTLY TO BSC, VOIDING CLEAR YELLOW URINE. NO BM THIS SHIFT. BED IN LOWEST POSITION, CALL LIGHT WITHIN REACH. USES CALL LIGHT APPROPRIATELY.
[2023-11-07] MEDS ORDERED: Levothyroxine Sodium 0.175 MG TAB PO SCH (06:00)
[2023-11-07 06:02] LABS: BASOPHILS ABSOLUTE AUTO 0.07 K/mm3 (0.00-0.23); BASOPHILS PERCENT AUTO 1 % (0-2); EOSINOPHILS PERCENT AUTO 1 % (0-6); Hematocrit 37.3 % (33.0-51.0); Hemoglobin 13.2 g/dL (11.5-16.0); IMMATURE GRAN ABSOLUTE AUTO 0.03 K/mm3 (0.00-0.10); IMMATURE GRAN PERCENT AUTO 0 % (0-1); LYMPHOCYTES ABSOLUTE AUTO 2.01 K/mm3 (0.84-5.20); LYMPHOCYTES PERCENT AUTO 21 % (21-46); MONOCYTES ABSOLUTE AUTO 0.65 K/mm3 (0.16-1.47); MONOCYTES PERCENT AUTO 7 % (4-13); Mean Corpuscular HGB 31.2 pg (26.0-34.0); Mean Corpuscular HGB Conc 35.4 g/dL (31.5-36.5); Mean Corpuscular Volume 88 fL (80-100); Mean Platelet Volume 10.7 fL (9.1-12.4); NEUTROPHILS ABSOLUTE AUTO 6.66 K/mm3 (1.96-9.15); NEUTROPHILS PERCENT AUTO 70 % (41-73); Platelet Count 200 K/mm3 (150-400); RDW Coefficient Variation 13.2 % (11.7-14.2); RDW Standard Deviation 42.5 fL (35.1-46.3); Red Blood Cell Count 4.23 M/mm3 (3.80-5.20); White Blood Cell Count 9.52 K/mm3 (4.00-11.30)
[2023-11-07 06:52] LABS: Bun/Creatinine Ratio 22.3 (12.0-20.0); Calcium, Blood 8.7 mg/dL (8.5-10.1); Creatinine, Blood 0.63 mg/dL (0.40-1.00); Magnesium, Blood 1.9 mg/dL (1.6-2.4); Potassium, Blood 3.9 mmol/L (3.5-5.5)
[2023-11-07 07:43] VITALS: BP 122/78
[2023-11-07] MEDS ORDERED: Lactated Ringer's 1,000 ML IV SCH (08:55)
[2023-11-07] MEDS ORDERED: Famotidine 20 MG Tab PO ONE (12:00)
[2023-11-07] MEDS ORDERED: AMIT25 PO (12:15)
[2023-11-07] MEDS ORDERED: SERT100 PO (12:16)
[2023-11-07] MEDS ORDERED: PROM25 PO (12:16)
--- NOTE | 2023-11-07 13:13 | NUR ---
DISCHARGE NOTE: PATIENT GOT HER SELF DRESSED AND GATHERED HER BELONGINGS. WENT OVER DISCHARGE WITH PATIENT AND REMOVED IV AND TELE. PATIENT CALLED HER SIGNIFICANT OTHER AND REQUESTED TO BE TAKEN DOWN TO THE [facility]. PATIENT TAKEN DOWN BY EXPLOSIVE OPERATOR SUPERVISOR IN WHEELCHAIR. NO SIGNS OR SYMPTOMS OF DISTRESS DURING DISCHARGE.
== END 2023-11-07 13:07 | disposition home or self-care (01) | DRG 393 ==
LOC: ER 09:42 → MEDS 09:43 → ER 09:43 → MEDS 09:43 → ENPENDDIS 11-07 11:32 → MEDS 11-07 13:07
PROVIDERS: Emergency Medicine; Student in an Organized Health Care Education/Training Program; ADMIT Internal Medicine
DX: R11.15 Cyclical vomiting syndrome unrelated to migraine (principal); G93.41 Metabolic encephalopathy; E87.20 Acidosis, unspecified; N17.9 Acute kidney failure, unspecified; I47.10 Supraventricular tachycardia, unspecified; F12.90 Cannabis use, unspecified, uncomplicated; I10 Essential (primary) hypertension; K21.9 Gastro-esophageal reflux disease without esophagitis; K52.9 Noninfective gastroenteritis and colitis, unspecified; E87.6 Hypokalemia; F31.9 Bipolar disorder, unspecified; E03.9 Hypothyroidism, unspecified; E83.42 Hypomagnesemia; G62.9 Polyneuropathy, unspecified; R94.31 Abnormal electrocardiogram [ECG] [EKG]; K20.90 Esophagitis, unspecified without bleeding; I16.0 Hypertensive urgency; Z88.8 Allergy status to other drugs, medicaments and biological substances; Z87.442 Personal history of urinary calculi; Z79.890 Hormone replacement therapy; Z79.899 Other long term (current) drug therapy
CPT/HCPCS: 36415; 74177; 80048; 80053; 81001; 83690; 83735; 83880; 84132; 84443; 85025; 93005; 93010; 96361; 96372; 96374-59; 96375; 96376; 99285-25; A9270; G0378; J0360; J0780; J1650; J1790; J1885; J2060; J2405; J2470; J3010; J3475; J3480; J7030; J7120; Q9967

== ENCOUNTER 2024-02-14 10:27 | Day surgery (SDC) | payer MEDICARE, OTHER ==
[~2024-02-14] VITALS: Ht 165.1 cm; Wt 74.8 kg
[~2024-02-14 10:27] MED LIST changes: +AMIT25 PO; +CELE200 PO; +Lactated Ringer's 1,000 ML IV ONE; +NEXLIZET 180-11 EACH PO; +propofoL 50 ML IV ONE
[2024-02-14] MEDS ORDERED: ASPIR 8181 M1 (11:15)
[2024-02-14] MEDS ORDERED: BISA5EC (11:15)
[2024-02-14] MEDS ORDERED: GABA400 (11:16)
[2024-02-14] MEDS ORDERED: MEMA10 (11:16)
[2024-02-14] MEDS ORDERED: DONEPEZIL HCL10 MG (11:16)
[2024-02-14] MEDS ORDERED: MAGNESIUM OXID500 MG (11:16)
[2024-02-14] MEDS ORDERED: FISH OIL 1,0001 EA10 (11:16)
[2024-02-14] MEDS ORDERED: DICLOFENAC SOD100 GM (11:16)
[2024-02-14] MEDS ORDERED: ONDA4ODT (11:17)
[2024-02-14] MEDS ORDERED: Robaxin750 MG (11:17)
[2024-02-14] MEDS ORDERED: MULVITA (11:17)
[2024-02-14] MEDS ORDERED: OXYB5 (11:17)
[2024-02-14] MEDS ORDERED: POTASSIUM GLUCO90 M1 (11:18)
[2024-02-14] MEDS ORDERED: NEXLIZET 180-11 EACH (11:18)
[2024-02-14] MEDS ORDERED: Primidone50 MG (11:18)
[2024-02-14] MEDS ORDERED: TURMERIC ROOT5000 GM (11:18)
[2024-02-14] MEDS ORDERED: Lactated Ringer's 1,000 ML IV ONE (11:37)
[2024-02-14 12:44] VITALS: BP 113/69
== END 2024-02-14 12:43 | disposition home or self-care (01) ==
LOC: ORSCSDS 10:27
PROVIDERS: Internal Medicine Gastroenterology
PROC: 0DB98ZX Excision of Duodenum, Via Natural or Artificial Opening Endoscopic, Diagnostic (ICD-10-PCS; principal; 2024-02-14 12:00)
DX: K22.70 Barrett's esophagus without dysplasia (principal); R11.2 Nausea with vomiting, unspecified; K31.7 Polyp of stomach and duodenum; I10 Essential (primary) hypertension; E78.5 Hyperlipidemia, unspecified; F31.9 Bipolar disorder, unspecified; Z87.891 Personal history of nicotine dependence; Z79.82 Long term (current) use of aspirin; Z79.899 Other long term (current) drug therapy
CPT/HCPCS: 88305; J2704; J7120

== ENCOUNTER 2024-05-14 07:28 | Day surgery (SDC) | payer MEDICARE, OTHER ==
[~2024-05-14] VITALS: Ht 165.1 cm; Wt 78.5 kg
[~2024-05-14 07:28] MED LIST changes: +ASPIR 8181 M1; +BISA5EC; +DICLOFENAC SOD100 GM; +DONEPEZIL HCL10 MG; +FISH OIL 1,0001 EA10; +GABA400; -Lactated Ringer's 1,000 ML IV ONE; +MAGNESIUM OXID500 MG; +MEMA10; +MULVITA; +NEXLIZET 180-11 EACH; +ONDA4ODT; +OXYB5; +POTASSIUM GLUCO90 M1; +Primidone50 MG; +Robaxin750 MG; +TURMERIC ROOT5000 GM; -propofoL 50 ML IV ONE
[2024-05-14] MEDS ORDERED: Lactated Ringer's 1,000 ML IV ONE ×2 (08:45→08:59)
[2024-05-14] MEDS ORDERED: propofoL 50 ML IV ONE (08:45)
[2024-05-14 09:58] VITALS: BP 130/74
== END 2024-05-14 09:57 | disposition home or self-care (01) ==
LOC: ORSCSDS 07:28
PROVIDERS: Internal Medicine Gastroenterology
PROC: 0DB98ZX Excision of Duodenum, Via Natural or Artificial Opening Endoscopic, Diagnostic (ICD-10-PCS; principal; 2024-05-14 09:00)
DX: K31.7 Polyp of stomach and duodenum (principal); K29.80 Duodenitis without bleeding; F31.9 Bipolar disorder, unspecified; K21.9 Gastro-esophageal reflux disease without esophagitis; R78.5 Finding of other psychotropic drug in blood; I10 Essential (primary) hypertension; F17.210 Nicotine dependence, cigarettes, uncomplicated; Z79.82 Long term (current) use of aspirin; Z79.899 Other long term (current) drug therapy
CPT/HCPCS: 88305; J2704; J7120

== ENCOUNTER → 2024-08-06 | Outpatient (CLI) | payer MEDICARE, OTHER ==
[2024-08-06 19:16] LABS: Thyroid Stimulating Hormone 1.89 uIU/mL (0.360-4.800)
== END ==
LOC: LAB 17:23 → LAB SHORT 17:23
DX: E03.9 Hypothyroidism, unspecified (principal)
CPT/HCPCS: 84439; 84443; 84481

== ENCOUNTER 2024-10-30 17:40 | Emergency (ER) | payer MEDICARE, OTHER ==
[~2024-10-30] VITALS: Ht 165.1 cm; Wt 81.7 kg
[~2024-10-30 17:40] MED LIST changes: -PRED20 PO
[2024-10-30 18:06] LABS: BASOPHILS ABSOLUTE AUTO 0.06 K/mm3 (0.00-0.23); BASOPHILS PERCENT AUTO 1 % (0-2); EOSINOPHILS ABSOLUTE AUTO 0.02 K/mm3 (0.00-0.68); EOSINOPHILS PERCENT AUTO 0 % (0-6); Hematocrit 36.4 % (33.0-51.0); Hemoglobin 12.1 g/dL (11.5-16.0); IMMATURE GRAN ABSOLUTE AUTO 0.02 K/mm3 (0.00-0.10); IMMATURE GRAN PERCENT AUTO 0 % (0-1); LYMPHOCYTES ABSOLUTE AUTO 1.29 K/mm3 (0.84-5.20); LYMPHOCYTES PERCENT AUTO 21 % (21-46); MONOCYTES ABSOLUTE AUTO 0.90 K/mm3 (0.16-1.47); MONOCYTES PERCENT AUTO 15 % (4-13); Mean Corpuscular HGB Conc 33.2 g/dL (31.5-36.5); Mean Corpuscular Volume 90 fL (80-100); NEUTROPHILS ABSOLUTE AUTO 3.87 K/mm3 (1.96-9.15); NEUTROPHILS PERCENT AUTO 63 % (41-73); NRBC ABSOLUTE 0.00 K/mm3 (0.00-0.02); NRBC Auto 0.0 /100 WBC (0.0-0.2); Platelet Count 178 K/mm3 (150-400); RDW Coefficient Variation 13.3 % (11.7-14.2); RDW Standard Deviation 44.0 fL (35.1-46.3)
[2024-10-30 18:30] LABS: Alanine Aminotransfer (ALT/SGP 34.0 U/L (12-78); Albumin, Blood 3.6 g/dL (3.4-5.0); Albumin/Globulin Ratio 1.0 (0.8-1.8); Anion Gap 10.0 mmol/L (3-11); Aspartate Aminotrans (AST/SGOT 27.0 U/L (12-37); Bilirubin, Total 0.2 mg/dL (0.1-1.0); Blood Urea Nitrogen 25.0 mg/dL (8-24); CO2, Blood 23.0 mmol/L (21-32); Calcium, Blood 7.6 mg/dL (8.5-10.1); Chloride, Blood 107.0 mmol/L (98-108); Creatinine, Blood 1.28 mg/dL (0.40-1.00); Globulin, Blood 3.7 g/dL (2.2-4.0); Glucose, Blood 114.0 mg/dL (70-99); Potassium, Blood 4.0 mmol/L (3.5-5.5); Sodium, Blood 136.0 mmol/L (136-145); Total Protein, Blood 7.3 g/dL (6.4-8.2)
[2024-10-30] MEDS ORDERED: NS 1,000 ML IV SCH (18:50)
[2024-10-30] MEDS ORDERED: PRED20 PO (20:04)
[2024-10-30 20:30] VITALS: BP 144/78
== END 2024-10-30 20:37 | disposition home or self-care (01) ==
LOC: ER 17:40
PROVIDERS: Physician Assistant
DX: U07.1 COVID-19 (principal); I10 Essential (primary) hypertension; Z79.899 Other long term (current) drug therapy; Z79.82 Long term (current) use of aspirin; I95.9 Hypotension, unspecified; R61 Generalized hyperhidrosis
CPT/HCPCS: 71046; 80053; 83605; 84484; 85025; 93005; 93010; 96360; 99284-25; A9270; J7030

== ENCOUNTER → 2024-10-30 | Outpatient (CLI) | payer MEDICARE, OTHER ==
[~2024-10-30] MED LIST changes: +PRED20 PO
[2024-10-30 17:16] LABS: BASOPHILS ABSOLUTE AUTO 0.04 K/mm3 (0.00-0.23); BASOPHILS PERCENT AUTO 1 % (0-2); EOSINOPHILS ABSOLUTE AUTO 0.02 K/mm3 (0.00-0.68); EOSINOPHILS PERCENT AUTO 0 % (0-6); Hematocrit 40.5 % (33.0-51.0); Hemoglobin 13.3 g/dL (11.5-16.0); IMMATURE GRAN ABSOLUTE AUTO 0.02 K/mm3 (0.00-0.10); IMMATURE GRAN PERCENT AUTO 0 % (0-1); LYMPHOCYTES ABSOLUTE AUTO 1.74 K/mm3 (0.84-5.20); LYMPHOCYTES PERCENT AUTO 26 % (21-46); MONOCYTES ABSOLUTE AUTO 0.92 K/mm3 (0.16-1.47); MONOCYTES PERCENT AUTO 14 % (4-13); Mean Corpuscular HGB Conc 32.8 g/dL (31.5-36.5); Mean Corpuscular Volume 90 fL (80-100); NEUTROPHILS ABSOLUTE AUTO 3.93 K/mm3 (1.96-9.15); NEUTROPHILS PERCENT AUTO 59 % (41-73); NRBC ABSOLUTE 0.00 K/mm3 (0.00-0.02); NRBC Auto 0.0 /100 WBC (0.0-0.2); Platelet Count 221 K/mm3 (150-400); RDW Coefficient Variation 13.3 % (11.7-14.2); RDW Standard Deviation 43.8 fL (35.1-46.3)
[2024-10-30 17:30] LABS: Alanine Aminotransfer (ALT/SGP 37.0 U/L (12-78); Albumin, Blood 4.2 g/dL (3.4-5.0); Albumin/Globulin Ratio 1.0 (0.8-1.8); Anion Gap 17.0 mmol/L (3-11); Aspartate Aminotrans (AST/SGOT 35.0 U/L (12-37); Bilirubin, Total 0.2 mg/dL (0.1-1.0); Blood Urea Nitrogen 24.0 mg/dL (8-24); CO2, Blood 24.0 mmol/L (21-32); Calcium, Blood 8.9 mg/dL (8.5-10.1); Chloride, Blood 102.0 mmol/L (98-108); Creatinine, Blood 1.73 mg/dL (0.40-1.00); Globulin, Blood 4.1 g/dL (2.2-4.0); Glucose, Blood 115.0 mg/dL (70-99); Potassium, Blood 3.9 mmol/L (3.5-5.5); Sodium, Blood 139.0 mmol/L (136-145); Total Protein, Blood 8.3 g/dL (6.4-8.2)
== END ==
LOC: LAB SHORT 17:08 → LAB 17:08
PROVIDERS: Physician Assistant
DX: I95.9 Hypotension, unspecified (principal); R61 Generalized hyperhidrosis
CPT/HCPCS: 80053; 83605; 84484; 85025

== ENCOUNTER → 2024-12-31 | Outpatient (CLI) | payer MEDICARE, OTHER ==
[~2024-12-31] MED LIST changes: +PRED20 PO
[2024-12-31 17:51] LABS: Alanine Aminotransfer (ALT/SGP 29.0 U/L (12-78); Albumin, Blood 4.1 g/dL (3.4-5.0); Albumin/Globulin Ratio 1.1 (0.8-1.8); Anion Gap 10.0 mmol/L (3-11); Aspartate Aminotrans (AST/SGOT 17.0 U/L (12-37); Bilirubin, Total 0.3 mg/dL (0.1-1.0); Blood Urea Nitrogen 19.0 mg/dL (8-24); CO2, Blood 24.0 mmol/L (21-32); Calcium, Blood 9.0 mg/dL (8.5-10.1); Chloride, Blood 105.0 mmol/L (98-108); Creatinine, Blood 0.7 mg/dL (0.40-1.00); Globulin, Blood 3.7 g/dL (2.2-4.0); Glucose, Blood 93.0 mg/dL (70-99); Potassium, Blood 4.4 mmol/L (3.5-5.5); Sodium, Blood 135.0 mmol/L (136-145); Total Protein, Blood 7.8 g/dL (6.4-8.2)
== END | disposition home or self-care (01) ==
LOC: LAB 16:01 → LAB SHORT 16:01
DX: M48.062 Spinal stenosis, lumbar region with neurogenic claudication (principal); M47.816 Spondylosis without myelopathy or radiculopathy, lumbar region; M41.26 Other idiopathic scoliosis, lumbar region; G89.4 Chronic pain syndrome; M62.830 Muscle spasm of back
CPT/HCPCS: 80053